=== PATIENT | female | born 1945 | race Caucasian/White ===

== ENCOUNTER 2018-07-28 08:39 | Outpatient (CLI) | payer MEDICARE, OTHER ==
[2013-08-01 11:58] VITALS: BP 108/74
[2018-07-28 09:27] LABS: eGFR (Non-African) > 60
== END 2018-07-28 08:40 ==
LOC: LAB 08:39
PROVIDERS: ATTEND Clinical Nurse Specialist Medical-Surgical
DX: N95.9 Unspecified menopausal and perimenopausal disorder (principal); Z13.820 Encounter for screening for osteoporosis
CPT/HCPCS: 36415; 80053; 82306

== ENCOUNTER 2019-01-31 09:13 | Outpatient (CLI) | payer MEDICARE, OTHER ==
[2013-08-01 11:58] VITALS: BP 108/74
== END 2019-01-31 09:15 ==
LOC: LAB 09:13
PROVIDERS: ATTEND Clinical Nurse Specialist Medical-Surgical
DX: M81.0 Age-related osteoporosis without current pathological fracture (principal); Z87.310 Personal history of (healed) osteoporosis fracture
CPT/HCPCS: 36415; 82306; 82310